=== PATIENT | male | born 1960 | race African-American/Black ===

== ENCOUNTER 2017-10-24 10:35 | Inpatient (IN) | payer OTHER ==
[2017-10-24 10:50] VITALS: BMI 24.1
[2017-10-24] MEDS ORDERED: MAGNESIUM CITRATE 300 ML BOTTLE PO PRN (15:09)
[2017-10-24] MEDS ORDERED: LOPERAMIDE HCL 2 MG CAPSULE PO PRN (15:09)
[2017-10-24] MEDS ORDERED: P-EPHED 60MG/TRIPROLIDI 2.5MG TABLET PO PRN (15:09)
[2017-10-24] MEDS ORDERED: guaiFENesin/D-METHORPHAN HB 10 ML UNIT-DOSE CUPS PO PRN (15:09)
[2017-10-24] MEDS ORDERED: IBUPROFEN 400 MG TABLET (FP) PO PRN (15:09)
[2017-10-24] MEDS ORDERED: MAGNESIUM HYDROX 2400MG/30ML ORAL SUSPENSION 30 ML CUP PO PRN (15:09)
[2017-10-24] MEDS ORDERED: MENTHOL/PHENOL 1 EACH UD MM PRN (15:09)
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
[2017-10-24] MEDS ORDERED: PATIENT'S OWN MEDICATION (NON-FORMULARY) (Omeprazole Magnesium [Prilosec Otc] 20 MG) PO SCH (15:15)
[2017-10-24] MEDS: PANTOPRAZOLE 40 MG TABLET (FP) PO SCH (17:02)
[2017-10-24 19:40] LABS: URINE APPEARANCE CLEAR; URINE BILIRUBIN NEGATIVE (<2.0 mg/dL); URINE BLOOD NEGATIVE (NEGATIVE); URINE COLOR LTYELLOW; URINE GLUCOSE (UA) NEGATIVE (NEGATIVE); URINE KETONE NEGATIVE (NEGATIVE); URINE LEUK ESTERASE NEGATIVE (NEGATIVE); URINE NITRITE NEGATIVE (NEGATIVE); URINE PROTEIN NEGATIVE (NEGATIVE); URINE UROBILINOGEN NEGATIVE mg/dL (0.2-1.0)
[2017-10-24] MEDS: THIAMINE HCL 100 MG TABLET (FP) PO SCH (21:59)
[2017-10-24] MEDS ORDERED: MELATONIN 5 MG TABLETS PO PRN (22:00)
[2017-10-24] MEDS: TOLNAFTATE 1% CREAM 15 GM TUBE TP SCH (22:35)
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
[2017-10-25] MEDS: PANTOPRAZOLE 40 MG TABLET (FP) PO SCH (09:57)
[2017-10-25] MEDS: PRENATAL VITAMINS W/ FOLIC ACID TABLET (FP) PO SCH (09:57)
[2017-10-25] MEDS: TOLNAFTATE 1% CREAM 15 GM TUBE TP SCH ×2 (09:59→21:55)
[2017-10-25] MEDS: COLLOIDAL OATMEAL 1 BAR EACH TP PRN (10:01)
--- NOTE | 2017-10-25 10:08 | EKG ---
Test Reason : Blood Pressure : / mmHG Vent. Rate : 070 BPM Atrial Rate : 070 BPM P-R Int : 134 ms QRS Dur : 094 ms QT Int : 386 ms P-R-T Axes : 070 075 052 degrees QTc Int : 416 ms NORMAL SINUS RHYTHM EARLY REPOLARIZATION NORMAL ECG NO PREVIOUS ECGS AVAILABLE Confirmed by MARY BROWN, KEVNI ([id number]) on 10/25/2017 10:07:52 AM Referred By: Confirmed By:KEVIN HERNANDEZ MD
[2017-10-25 10:18] LABS: HEMATOCRIT 40.3 % (35.4-49); HEMOGLOBIN 13.2 GM/dL (11.7-16.9); MCH 31.1 pg (25.7-33.7); MCHC 32.7 g/dl (32.0-35.9); MEAN CELL VOLUME 95.1 fl (80-96); PLATELET COUNT 248 K/MM3 (134-434); RBC 4.23 M/mm3 (4.00-5.60); RDW 13.2 % (11.9-15.9); WHITE BLOOD COUNT 5.9 K/mm3 (4.0-10.0)
[2017-10-25 10:30] LABS: CHLORIDE 106 mmol/L (98-107); POTASSIUM 4.1 mmol/L (3.5-5.1); SODIUM 141 mmol/L (136-145)
[2017-10-25 10:51] LABS: ALBUMIN 3.6 g/dl (3.4-5.0); ALK PHOS 81 U/L (45-117); ANION GAP 8 (8-16); BILIRUBIN,TOTAL 0.3 mg/dL (0.2-1.0); BLOOD UREA NITROGEN 14 mg/dL (7-18); CALCIUM 8.9 mg/dL (8.5-10.1); CO2 27 mmol/L (21-32); GLUCOSE,RANDOM 149 mg/dL (74-106); SGOT/AST 21 U/L (15-37); SGPT/ALT 29 U/L (12-78); TOT PROT 7.6 g/dl (6.4-8.2)
[2017-10-25 15:12] LABS: SICKLE CELL SCREEN NEGATIVE (NEGATIVE)
--- NOTE | 2017-10-25 17:29 | PN ---
[facility] Progress Note Note: Patient presents with nasal congestion and sore throat. Denies fever, cough and SOB. Laboratory Tests 10/24/17 10/25/17 10/25/17 19:00 05:50 05:50 WBC 5.9 RBC 4.23 Hgb 13.2 Hct 40.3 MCV 95.1 MCH 31.1 MCHC 32.7 RDW 13.2 Plt Count 248 MPV 9.0 Sickle Cell Screen Negative Sodium 141 Potassium 4.1 Chloride 106 Carbon Dioxide 27 Anion Gap 8 BUN 14 Creatinine 1.0 Creat Clearance w eGFR > 60 Random Glucose 149 H Calcium 8.9 Total Bilirubin 0.3 AST 21 ALT 29 Alkaline Phosphatase 81 Total Protein 7.6 Albumin 3.6 Urine Color Ltyellow Urine Appearance Clear Urine pH 8.0 Ur Specific [place] 1.017 Urine Protein Negative Urine Glucose (UA) Negative Urine Ketones Negative Urine Blood Negative Urine Nitrite Negative Urine Bilirubin Negative Urine Urobilinogen Negative Ur Leukocyte Esterase Negative RPR Titer 10/25/17 05:50 WBC RBC Hgb Hct MCV MCH MCHC RDW Plt Count MPV Sickle Cell Screen Sodium Potassium Chloride Carbon Dioxide Anion Gap BUN Creatinine Creat Clearance w eGFR Random Glucose Calcium Total Bilirubin AST ALT Alkaline Phosphatase Total Protein Albumin Urine Color Urine Appearance Urine pH Ur Specific [place] Urine Protein Urine Glucose (UA) Urine Ketones Urine Blood Urine Nitrite Urine Bilirubin Urine Urobilinogen Ur Leukocyte Esterase RPR Titer Nonreactive Vital Signs Temp 97.9 F 10/25/17 06:47 Pulse 77 10/25/17 06:47 Resp 18 10/25/17 06:47 BP 115/76 10/25/17 06:47 Pulse Ox Intake & Output 10/24/17 10/25/17 10/25/17 23:59 11:59 23:59 Other: Voiding Method Toilet Obj: HEENT: normocephalic, +PERRLA, +nasal congestion, pharynx pink and no exudate Skin: warm and dry and in NAD. A/P: withdrawal symptoms Will continue with prn tylenol and ephendrine continue to monitor clinically
[2017-10-25] MEDS ORDERED: BENZOYL PEROXIDE 5% 60 GM GEL..GRAM. TP ONE (18:00)
[2017-10-25] MEDS: AMMONIUM LACTATE 12% LOTION 225 GM BOTTLE TP PRN (21:51)
[2017-10-25] MEDS ORDERED: PT OWN MED DRAWER 7, Y5N ONE ×2 (21:52→21:54)
[2017-10-25] MEDS: MELATONIN 5 MG, MELATONIN 1 MG PO PRN (21:55)
[2017-10-25] MEDS: THIAMINE HCL 100 MG TABLET (FP) PO SCH (21:55)
[2017-10-25] MEDS ORDERED: MELATONIN 1 MG TABLET PO PRN (22:00)
[2017-10-26] MEDS: PRENATAL VITAMINS W/ FOLIC ACID TABLET (FP) PO SCH (09:32)
[2017-10-26] MEDS: TOLNAFTATE 1% CREAM 15 GM TUBE TP SCH ×2 (09:32→22:40)
[2017-10-26] MEDS: PANTOPRAZOLE 40 MG TABLET (FP) PO SCH (09:32)
[2017-10-26] MEDS: MELATONIN 5 MG, MELATONIN 1 MG PO PRN (21:20)
[2017-10-26] MEDS: THIAMINE HCL 100 MG TABLET (FP) PO SCH (22:40)
[2017-10-27] MEDS ORDERED: PT OWN MED DRAWER 7, Y5N ONE ×2 (08:40→19:41)
[2017-10-27] MEDS: PANTOPRAZOLE 40 MG TABLET (FP) PO SCH (09:48)
[2017-10-27] MEDS: TOLNAFTATE 1% CREAM 15 GM TUBE TP SCH ×2 (09:48→21:28)
[2017-10-27] MEDS: PRENATAL VITAMINS W/ FOLIC ACID TABLET (FP) PO SCH (09:48)
[2017-10-27] MEDS: ACETAMINOPHEN 325 MG TABLET (FP) PO PRN (09:49)
[2017-10-27] MEDS: THIAMINE HCL 100 MG TABLET (FP) PO SCH (21:28)
[2017-10-27] MEDS: MELATONIN 5 MG, MELATONIN 1 MG PO PRN (21:28)
[2017-10-28] MEDS: PANTOPRAZOLE 40 MG TABLET (FP) PO SCH (09:45)
[2017-10-28] MEDS: TOLNAFTATE 1% CREAM 15 GM TUBE TP SCH ×2 (09:45→21:13)
[2017-10-28] MEDS: PRENATAL VITAMINS W/ FOLIC ACID TABLET (FP) PO SCH (09:45)
[2017-10-28] MEDS: AMMONIUM LACTATE 12% LOTION 225 GM BOTTLE TP PRN (21:11)
[2017-10-28] MEDS: MELATONIN 5 MG, MELATONIN 1 MG PO PRN (21:13)
[2017-10-28] MEDS ORDERED: PT OWN MED DRAWER 7, Y5N ONE (21:14)
[2017-10-28] MEDS: THIAMINE HCL 100 MG TABLET (FP) PO SCH (21:15)
[2017-10-29] MEDS: PRENATAL VITAMINS W/ FOLIC ACID TABLET (FP) PO SCH (09:48)
[2017-10-29] MEDS: PANTOPRAZOLE 40 MG TABLET (FP) PO SCH (09:48)
[2017-10-29] MEDS: TOLNAFTATE 1% CREAM 15 GM TUBE TP SCH ×2 (09:50→21:16)
[2017-10-29] MEDS ORDERED: MELATONIN 5 MG TABLETS PO PRN (10:44)
[2017-10-29] MEDS ORDERED: PT OWN MED DRAWER 7, Y5N ONE (21:17)
[2017-10-29] MEDS: THIAMINE HCL 100 MG TABLET (FP) PO SCH (21:17)
[2017-10-29] MEDS ORDERED: MELATONIN 1 MG, MELATONIN 5 MG PO PRN (22:00)
--- NOTE | 2017-10-30 07:59 | PN ---
Psychiatric Progress Note Vital Signs: Vital Signs Period Temp Pulse Resp BP Sys/Delgadillo Pulse Ox Last 24 Hr 98 F 85 18-18 99/71 Date of Session: 10/30/17 Chief Complaint:: Insomnia HPI: Patient addressing Alcohol Dependence comorbid with Alcohol-induced Sleep Disorder ROS: Athete's foot, GERD, Onychogryphosis Current Medications: Active Medications Generic Name Dose Route Start Last Admin Trade Name Freq PRN Reason Stop Dose Admin Acetaminophen 650 mg 10/24/17 15:09 10/27/17 09:49 Tylenol - PO 650 mg Q4H PRN Administration FEVER Al Hydroxide/Mg Hydroxide 30 ml 10/24/17 15:09 Mylanta Oral Suspension - PO Q6H PRN DYSPEPSIA Colloidal Oatmeal 1 applic 10/24/17 15:11 10/25/17 10:01 Aveeno Soap - TP 1 applic DAILY PRN Administration HYGEINE Eucalyptus/Menthol/Phenol/Sorbitol 1 each 10/24/17 15:09 Cepastat Lozenge - MM Q4H PRN SORE THROAT Guaifenesin 10 ml 10/24/17 15:09 Robitussin Dm - PO Q6H PRN COUGH Hydroxyzine Pamoate 50 mg 10/24/17 15:09 Vistaril - PO Q4H PRN AGITATION Ibuprofen 400 mg 10/24/17 15:09 Motrin - PO Q6H PRN Pain level 4-6 Lactic Acid 1 applic 10/24/17 15:11 10/28/17 21:11 Lac-Hydrin 12 TP 1 applic BID PRN Administration DRY SKIN Loperamide HCl 4 mg 10/24/17 15:09 Imodium - PO Q6H PRN DIARRHEA Magnesium Citrate 300 ml 10/24/17 15:09 Citroma - PO Q48H PRN CONSTIPATION Magnesium Hydroxide 30 ml 10/24/17 15:09 Milk Of Magnesia - PO DAILY PRN CONSTIPATION Pantoprazole Sodium 40 mg 10/24/17 15:35 10/29/17 09:48 Protonix - PO 40 mg DAILY BETH Administration Multivit/Folic Acid/Iron 1 tab 10/25/17 10:00 10/29/17 09:48 Vitamins (Sjr) - PO 1 tab DAILY BETH Administration Pseudoephedrine/Triprolidine 1 combo 10/24/17 15:09 Actifed - PO TID PRN NASAL CONGESTION Suvorexant 10 mg 10/30/17 22:00 Belsomra PO HS PRN INSOMNIA Thiamine HCl 100 mg 10/24/17 22:00 10/29/17 21:17 Vitamin B1 - PO 100 mg HS BETH Administration Tolnaftate 1 applic 10/24/17 22:00 10/29/17 21:16 Tinactin 1% Cream - TP 1 applic BID BETH Administration Medication(s) Change(s): 1) Discontinue Melatonin. 2) Start Belsomra 10 mg po HS prn for insomnia Current Side Effect: No Lab tests ordered: Yes Lab tests reviewed: Yes Provider note:: Patient reports sleeping poorly despite taking Melatonin 6 mg at bedtime. Discussed not only sleep hygiene with patient but also hypnotic properties of Belsomra. Patient is in agreement with plan Total face to face time:: 15 Mental Status Exam - Mental Status Exam Alert and Oriented to: Time, Place, Person Cognitive Function: Fair Patient Appearance: Well Groomed Mood: Hopeful, Euthymic Affect: Appropriate Patient Behavior: Cooperative Speech Pattern: Clear Voice Loudness: Normal Thought Process: Intact, Goal Oriented Thought Disorder: Not Present Hallucinations: Denies Suicidal Ideation: Denies Homicidal Ideation: Denies Insight/Judgement: Fair Sleep: Poorly Appetite: Good Muscle strength/Tone: Normal Gait/Station: Normal Psychiatric Treatment Plan - Problem List (1) Alcohol dependence Current Visit: Yes (2) Alcohol-induced sleep disorder Current Visit: Yes (3) Athletes foot Current Visit: Yes (4) GERD (gastroesophageal reflux disease) Current Visit: Yes (5) Onychogryphosis Current Visit: Yes Initial treatment plan: 1) Discontinue Melotonin. 2) Start Belsomra 10 mg po HS prn for insomnia. 3) Monitor progress
[2017-10-30] MEDS: PRENATAL VITAMINS W/ FOLIC ACID TABLET (FP) PO SCH (10:00)
[2017-10-30] MEDS: PANTOPRAZOLE 40 MG TABLET (FP) PO SCH (10:00)
[2017-10-30] MEDS ORDERED: PT OWN MED DRAWER 7, Y5N ONE ×2 (10:02→20:16)
[2017-10-30] MEDS: TOLNAFTATE 1% CREAM 15 GM TUBE TP SCH ×2 (10:02→21:17)
[2017-10-30] MEDS: THIAMINE HCL 100 MG TABLET (FP) PO SCH (21:17)
[2017-10-30] MEDS ORDERED: SUVOREXANT 10 MG TABLET PO PRN (22:00)
[2017-10-31] MEDS: PANTOPRAZOLE 40 MG TABLET (FP) PO SCH (09:50)
[2017-10-31] MEDS: PRENATAL VITAMINS W/ FOLIC ACID TABLET (FP) PO SCH (09:50)
[2017-10-31] MEDS: AMMONIUM LACTATE 12% LOTION 225 GM BOTTLE TP PRN (09:51)
[2017-10-31] MEDS: TOLNAFTATE 1% CREAM 15 GM TUBE TP SCH ×2 (09:51→21:20)
--- NOTE | 2017-10-31 12:51 | PN ---
S Progress Note Note: Patient c/o of non-radiating intermittent chest pain since this morning and bilateral eye pain. Denies vertigo, SOB, of dyspnea on exertion. Last Vital Signs Temp Pulse Resp BP Pulse Ox 98.2 F 73 18 117/72 10/31/17 06:50 10/31/17 06:50 10/31/17 06:50 10/31/17 06:50 Laboratory Last Values WBC 5.9 K/mm3 (4.0-10.0) 10/25/17 05:50 RBC 4.23 M/mm3 (4.00-5.60) 10/25/17 05:50 Hgb 13.2 GM/dL (11.7-16.9) 10/25/17 05:50 Hct 40.3 % (35.4-49) 10/25/17 05:50 MCV 95.1 fl (80-96) 10/25/17 05:50 MCH 31.1 pg (25.7-33.7) 10/25/17 05:50 MCHC 32.7 g/dl (32.0-35.9) 10/25/17 05:50 RDW 13.2 % (11.9-15.9) 10/25/17 05:50 Plt Count 248 K/MM3 (134-434) 10/25/17 05:50 MPV 9.0 fl (7.5-11.1) 10/25/17 05:50 Sickle Cell Screen Negative (NEGATIVE) 10/25/17 05:50 Sodium 141 mmol/L (136-145) 10/25/17 05:50 Potassium 4.1 mmol/L (3.5-5.1) 10/25/17 05:50 Chloride 106 mmol/L (98-107) 10/25/17 05:50 Carbon Dioxide 27 mmol/L (21-32) 10/25/17 05:50 Anion Gap 8 (8-16) 10/25/17 05:50 BUN 14 mg/dL (7-18) 10/25/17 05:50 Creatinine 1.0 mg/dL (0.7-1.3) 10/25/17 05:50 Creat Clearance w eGFR > 60 (>60) 10/25/17 05:50 POC Glucometer 90 UNITS (80-120) 10/29/17 06:43 Random Glucose 149 mg/dL (74-106) H 10/25/17 05:50 Calcium 8.9 mg/dL (8.5-10.1) 10/25/17 05:50 Total Bilirubin 0.3 mg/dL (0.2-1.0) 10/25/17 05:50 AST 21 U/L (15-37) 10/25/17 05:50 ALT 29 U/L (12-78) 10/25/17 05:50 Alkaline Phosphatase 81 U/L (45-117) 10/25/17 05:50 Total Protein 7.6 g/dl (6.4-8.2) 10/25/17 05:50 Albumin 3.6 g/dl (3.4-5.0) 10/25/17 05:50 Urine Color Ltyellow 10/24/17 19:00 Urine Appearance Clear 10/24/17 19:00 Urine pH 8.0 (5.0-8.0) 10/24/17 19:00 Ur Specific [place] 1.017 (1.001-1.035) 10/24/17 19:00 Urine Protein Negative (NEGATIVE) 10/24/17 19:00 Urine Glucose (UA) Negative (NEGATIVE) 10/24/17 19:00 Urine Ketones Negative (NEGATIVE) 10/24/17 19:00 Urine Blood Negative (NEGATIVE) 10/24/17 19:00 Urine Nitrite Negative (NEGATIVE) 10/24/17 19:00 Urine Bilirubin Negative (<2.0 mg/dL) 10/24/17 19:00 Urine Urobilinogen Negative mg/dL (0.2-1.0) 10/24/17 19:00 Ur Leukocyte Esterase Negative (NEGATIVE) 10/24/17 19:00 RPR Titer Nonreactive (NONREACTIVE) 10/25/17 05:50 A/P Patient in no apparent distress, agitated Normal Heart Rate and rhythm, EKG NSR, no edema Lungs clear throughout no adventitious breath sounds No edema present, skin discoloration or cyanosis, + pulses throughout BS x 4, no tenderness or distension EKG order Patient sent to [facility] for further evaluation, patient endorse to Dr. Park
--- NOTE | 2017-10-31 14:26 | PN ---
Psychiatric Progress Note Vital Signs: Vital Signs Period Temp Pulse Resp BP Sys/Delgadillo Pulse Ox Last 24 Hr 97.6 F-98.2 F 73-82 16-18 117-141/72-94 Date of Session: 10/31/17 Chief Complaint:: Insomnia HPI: Patient addressing Alcohol Dependence comorbid with Alcohol-induced Sleep Disorder ROS: Athete's foot, GERD, Onychogryphosis Current Medications: Active Medications Generic Name Dose Route Start Last Admin Trade Name Freq PRN Reason Stop Dose Admin Acetaminophen 650 mg 10/24/17 15:09 10/27/17 09:49 Tylenol - PO 650 mg Q4H PRN Administration FEVER Al Hydroxide/Mg Hydroxide 30 ml 10/24/17 15:09 Mylanta Oral Suspension - PO Q6H PRN DYSPEPSIA Colloidal Oatmeal 1 applic 10/24/17 15:11 10/25/17 10:01 Aveeno Soap - TP 1 applic DAILY PRN Administration HYGEINE Eucalyptus/Menthol/Phenol/Sorbitol 1 each 10/24/17 15:09 Cepastat Lozenge - MM Q4H PRN SORE THROAT Guaifenesin 10 ml 10/24/17 15:09 Robitussin Dm - PO Q6H PRN COUGH Hydroxyzine Pamoate 50 mg 10/24/17 15:09 Vistaril - PO Q4H PRN AGITATION Ibuprofen 400 mg 10/24/17 15:09 Motrin - PO Q6H PRN Pain level 4-6 Lactic Acid 1 applic 10/24/17 15:11 10/31/17 09:51 Lac-Hydrin 12 TP 1 applic BID PRN Administration DRY SKIN Loperamide HCl 4 mg 10/24/17 15:09 Imodium - PO Q6H PRN DIARRHEA Magnesium Citrate 300 ml 10/24/17 15:09 Citroma - PO Q48H PRN CONSTIPATION Magnesium Hydroxide 30 ml 10/24/17 15:09 Milk Of Magnesia - PO DAILY PRN CONSTIPATION Pantoprazole Sodium 40 mg 10/24/17 15:35 10/31/17 09:50 Protonix - PO 40 mg DAILY BETH Administration Multivit/Folic Acid/Iron 1 tab 10/25/17 10:00 10/31/17 09:50 Vitamins (Sjr) - PO 1 tab DAILY BETH Administration Pseudoephedrine/Triprolidine 1 combo 10/24/17 15:09 Actifed - PO TID PRN NASAL CONGESTION Suvorexant 15 mg 10/31/17 22:00 Belsomra PO HS PRN INSOMNIA Thiamine HCl 100 mg 10/24/17 22:00 10/30/17 21:17 Vitamin B1 - PO 100 mg HS BETH Administration Tolnaftate 1 applic 10/24/17 22:00 10/31/17 09:51 Tinactin 1% Cream - TP 1 applic BID BETH Administration Medication(s) Change(s): Increase Belsomra dosage to 15 mg po HS prn for insomnia Current Side Effect: No Lab tests ordered: Yes Lab tests reviewed: Yes Provider note:: Patient reports experiencing difficulty to sleep. Told scientific writer that he slept poorly last night despite taking Belsomra 10 mg at bedtime. Discussed with patient about increasing dosage of Belsomra and he agreed with that plan Total face to face time:: 15 Mental Status Exam - Mental Status Exam Alert and Oriented to: Time, Place, Person Cognitive Function: Fair Patient Appearance: Well Groomed Mood: Hopeful, Euthymic Affect: Appropriate Patient Behavior: Cooperative Speech Pattern: Clear Voice Loudness: Normal Thought Process: Intact, Goal Oriented Thought Disorder: Not Present Hallucinations: Denies Homicidal Ideation: Denies Insight/Judgement: Fair Sleep: Poorly Appetite: Good Muscle strength/Tone: Normal Gait/Station: Normal Psychiatric Treatment Plan - Problem List (1) Alcohol dependence Current Visit: Yes Qualifiers: Substance use status: uncomplicated Qualified Code(s): F10.20 - Alcohol dependence, uncomplicated (2) Alcohol-induced sleep disorder Current Visit: Yes (3) Athletes foot Current Visit: Yes (4) GERD (gastroesophageal reflux disease) Current Visit: Yes (5) Onychogryphosis Current Visit: Yes Initial treatment plan: 1) Discontinue Berlsomra as currently ordered. 2) Start Belsomra 15 mg po HS prn for insomnia. 3) Monitor progress
--- NOTE | 2017-10-31 15:58 | EKG ---
Test Reason : Blood Pressure : / mmHG Vent. Rate : 080 BPM Atrial Rate : 080 BPM P-R Int : 132 ms QRS Dur : 086 ms QT Int : 350 ms P-R-T Axes : -06 -11 017 degrees QTc Int : 403 ms NORMAL SINUS RHYTHM MODERATE VOLTAGE CRITERIA FOR LVH, MAY BE NORMAL VARIANT BORDERLINE ECG WHEN COMPARED WITH ECG OF 25-OCT-2017 05:27, QUESTIONABLE CHANGE IN QRS AXIS T WAVE AMPLITUDE HAS DECREASED IN LATERAL LEADS Confirmed by SHANNAN BURKS MD ([id number]) on 10/31/2017 3:57:44 PM Referred By: Confirmed By:SHANNAN BURKS MD
--- NOTE | 2017-10-31 19:40 | PN ---
S Progress Note Note: Patient return to the unit in stable condition to continue rehab tx after evaluation in the ED for chest pain, patient dx with acute Costochondritis. Vital Signs Temperature 97.7 F 10/31/17 18:53 Pulse Rate 75 10/31/17 18:53 Respiratory Rate 18 10/31/17 18:53 Blood Pressure 139/79 10/31/17 18:53 O2 Sat by Pulse Oximetry (%) Continue to monitor
[2017-10-31] MEDS: THIAMINE HCL 100 MG TABLET (FP) PO SCH (21:20)
[2017-10-31] MEDS: hydrOXYzine PAMOATE 50 MG CAPSULE (FP) PO PRN (21:20)
[2017-10-31] MEDS ORDERED: PT OWN MED DRAWER 7, Y5N ONE (21:21)
[2017-10-31] MEDS ORDERED: SUVOREXANT 15 MG TABLET PO PRN (22:00)
[2017-11-01] MEDS: PANTOPRAZOLE 40 MG TABLET (FP) PO SCH (10:12)
[2017-11-01] MEDS: PRENATAL VITAMINS W/ FOLIC ACID TABLET (FP) PO SCH (10:12)
[2017-11-01] MEDS: TOLNAFTATE 1% CREAM 15 GM TUBE TP SCH ×2 (10:13→21:11)
--- NOTE | 2017-11-01 11:52 | PN ---
Psychiatric Progress Note Vital Signs: Vital Signs Period Temp Pulse Resp BP Sys/Delgadillo Pulse Ox Last 24 Hr 97.6 F-97.9 F 75-82 16-18 131-141/79-94 Date of Session: 11/01/17 Chief Complaint:: Insomnia HPI: Patient addressing Alcohol Dependence comorbid with Alcohol-induced Sleep Disorder ROS: Athete's foot, GERD, Onychogryphosis Current Medications: Active Medications Generic Name Dose Route Start Last Admin Trade Name Freq PRN Reason Stop Dose Admin Acetaminophen 650 mg 10/24/17 15:09 10/27/17 09:49 Tylenol - PO 650 mg Q4H PRN Administration FEVER Al Hydroxide/Mg Hydroxide 30 ml 10/24/17 15:09 Mylanta Oral Suspension - PO Q6H PRN DYSPEPSIA Colloidal Oatmeal 1 applic 10/24/17 15:11 10/25/17 10:01 Aveeno Soap - TP 1 applic DAILY PRN Administration HYGEINE Eucalyptus/Menthol/Phenol/Sorbitol 1 each 10/24/17 15:09 Cepastat Lozenge - MM Q4H PRN SORE THROAT Guaifenesin 10 ml 10/24/17 15:09 Robitussin Dm - PO Q6H PRN COUGH Hydroxyzine Pamoate 50 mg 10/24/17 15:09 10/31/17 21:20 Vistaril - PO 50 mg Q4H PRN Administration AGITATION Ibuprofen 400 mg 10/24/17 15:09 Motrin - PO Q6H PRN Pain level 4-6 Lactic Acid 1 applic 10/24/17 15:11 10/31/17 09:51 Lac-Hydrin 12 TP 1 applic BID PRN Administration DRY SKIN Loperamide HCl 4 mg 10/24/17 15:09 Imodium - PO Q6H PRN DIARRHEA Magnesium Citrate 300 ml 10/24/17 15:09 Citroma - PO Q48H PRN CONSTIPATION Magnesium Hydroxide 30 ml 10/24/17 15:09 Milk Of Magnesia - PO DAILY PRN CONSTIPATION Pantoprazole Sodium 40 mg 10/24/17 15:35 11/01/17 10:12 Protonix - PO Not Given DAILY BETH Multivit/Folic Acid/Iron 1 tab 10/25/17 10:00 11/01/17 10:12 Vitamins (Sjr) - PO Not Given DAILY BETH Pseudoephedrine/Triprolidine 1 combo 10/24/17 15:09 Actifed - PO TID PRN NASAL CONGESTION Suvorexant 15 mg 10/31/17 22:00 10/31/17 21:18 Belsomra PO 11/03/17 21:59 15 mg HS PRN Administration INSOMNIA Suvorexant 10 mg 11/01/17 22:00 Belsomra PO HS PRN INSOMNIA Thiamine HCl 100 mg 10/24/17 22:00 10/31/17 21:20 Vitamin B1 - PO 100 mg HS BETH Administration Tolnaftate 1 applic 10/24/17 22:00 11/01/17 10:13 Tinactin 1% Cream - TP Not Given BID BETH Medication(s) Change(s): Increase Belsomra dosage to 20 mg po HS prn for insomnia Current Side Effect: No Lab tests ordered: Yes Lab tests reviewed: Yes Provider note:: Patient is still reporting sleeping poorly despite taking Belsomra 15 mg at bedtime last night. Patient requests that dosage of Belsomra be increased Total face to face time:: 15 Mental Status Exam - Mental Status Exam Alert and Oriented to: Time, Place, Person Cognitive Function: Fair Mood: Hopeful, Euthymic Affect: Appropriate Patient Behavior: Cooperative Speech Pattern: Clear Voice Loudness: Normal Thought Process: Intact, Goal Oriented Thought Disorder: Not Present Hallucinations: Denies Suicidal Ideation: Denies Homicidal Ideation: Denies Insight/Judgement: Fair Sleep: Poorly Appetite: Good Muscle strength/Tone: Normal Gait/Station: Normal Psychiatric Treatment Plan - Problem List (1) Alcohol dependence Current Visit: Yes Qualifiers: Substance use status: uncomplicated Qualified Code(s): F10.20 - Alcohol dependence, uncomplicated (2) Alcohol-induced sleep disorder Current Visit: Yes (3) Athletes foot Current Visit: Yes (4) GERD (gastroesophageal reflux disease) Current Visit: Yes (5) Onychogryphosis Current Visit: Yes Initial treatment plan: 1) Discontinue Belsomra as currently ordered. 2) Start Belsomra 20 mg po HS prn for insomnia. 3) Monitor progress
[2017-11-01] MEDS ORDERED: PT OWN MED DRAWER 7, Y5N ONE ×2 (11:54→19:28)
[2017-11-01] MEDS: SUVOREXANT 10 MG TABLET PO PRN (21:10)
[2017-11-01] MEDS: THIAMINE HCL 100 MG TABLET (FP) PO SCH (21:10)
[2017-11-01] MEDS ORDERED: SUVOREXANT 10 MG TABLET PO PRN (22:00)
[2017-11-02] MEDS: PRENATAL VITAMINS W/ FOLIC ACID TABLET (FP) PO SCH (09:41)
[2017-11-02] MEDS: PANTOPRAZOLE 40 MG TABLET (FP) PO SCH (09:41)
[2017-11-02] MEDS: TOLNAFTATE 1% CREAM 15 GM TUBE TP SCH ×2 (09:43→21:16)
[2017-11-02] MEDS: BENZOYL PEROXIDE 5% 60 GM GEL..GRAM. TP PRN (09:43)
[2017-11-02] MEDS ORDERED: PT OWN MED DRAWER 7, Y5N ONE (09:44)
[2017-11-02] MEDS: THIAMINE HCL 100 MG TABLET (FP) PO SCH (21:16)
[2017-11-02] MEDS: SUVOREXANT 10 MG TABLET PO PRN (21:16)
[2017-11-03] MEDS: TOLNAFTATE 1% CREAM 15 GM TUBE TP SCH ×2 (09:35→21:08)
[2017-11-03] MEDS: PANTOPRAZOLE 40 MG TABLET (FP) PO SCH (09:35)
[2017-11-03] MEDS: PRENATAL VITAMINS W/ FOLIC ACID TABLET (FP) PO SCH (09:35)
[2017-11-03] MEDS: SUVOREXANT 10 MG TABLET PO PRN (21:07)
[2017-11-03] MEDS: THIAMINE HCL 100 MG TABLET (FP) PO SCH (21:07)
[2017-11-04] MEDS: PANTOPRAZOLE 40 MG TABLET (FP) PO SCH (09:38)
[2017-11-04] MEDS: PRENATAL VITAMINS W/ FOLIC ACID TABLET (FP) PO SCH (09:38)
[2017-11-04] MEDS: TOLNAFTATE 1% CREAM 15 GM TUBE TP SCH ×2 (09:40→21:14)
[2017-11-04] MEDS ORDERED: PT OWN MED DRAWER 7, Y5N ONE (09:40)
--- NOTE | 2017-11-04 12:45 | EKG ---
Test Reason : Blood Pressure : / mmHG Vent. Rate : 074 BPM Atrial Rate : 074 BPM P-R Int : 134 ms QRS Dur : 096 ms QT Int : 366 ms P-R-T Axes : 060 062 051 degrees QTc Int : 406 ms NORMAL SINUS RHYTHM POSSIBLE LEFT ATRIAL ENLARGEMENT BORDERLINE ECG WHEN COMPARED WITH ECG OF 31-OCT-2017 12:53, QUESTIONABLE CHANGE IN QRS AXIS Confirmed by CHARLOTTE BARRON MD ([id number]) on 11/04/2017 12:45:39 PM Referred By: Confirmed By:CHARLOTTE BARRON MD
[2017-11-04] MEDS: hydrOXYzine PAMOATE 50 MG CAPSULE (FP) PO PRN (21:13)
[2017-11-04] MEDS: SUVOREXANT 10 MG TABLET PO PRN (21:14)
[2017-11-04] MEDS: THIAMINE HCL 100 MG TABLET (FP) PO SCH (21:14)
[2017-11-05] MEDS: PRENATAL VITAMINS W/ FOLIC ACID TABLET (FP) PO SCH (09:49)
[2017-11-05] MEDS: PANTOPRAZOLE 40 MG TABLET (FP) PO SCH (09:49)
[2017-11-05] MEDS: AMMONIUM LACTATE 12% LOTION 225 GM BOTTLE TP PRN (09:50)
[2017-11-05] MEDS: BENZOYL PEROXIDE 5% 60 GM GEL..GRAM. TP PRN (09:50)
[2017-11-05] MEDS: TOLNAFTATE 1% CREAM 15 GM TUBE TP SCH ×2 (09:51→22:10)
[2017-11-05] MEDS: SUVOREXANT 10 MG TABLET PO PRN (21:15)
[2017-11-05] MEDS: THIAMINE HCL 100 MG TABLET (FP) PO SCH (22:10)
[2017-11-06] MEDS: PANTOPRAZOLE 40 MG TABLET (FP) PO SCH (09:54)
[2017-11-06] MEDS: PRENATAL VITAMINS W/ FOLIC ACID TABLET (FP) PO SCH (09:55)
[2017-11-06] MEDS: TOLNAFTATE 1% CREAM 15 GM TUBE TP SCH ×2 (09:55→21:12)
[2017-11-06] MEDS: THIAMINE HCL 100 MG TABLET (FP) PO SCH (21:11)
[2017-11-06] MEDS: SUVOREXANT 10 MG TABLET PO PRN (21:11)
[2017-11-07] MEDS: TOLNAFTATE 1% CREAM 15 GM TUBE TP SCH ×2 (09:43→22:33)
[2017-11-07] MEDS: PANTOPRAZOLE 40 MG TABLET (FP) PO SCH (09:43)
[2017-11-07] MEDS: PRENATAL VITAMINS W/ FOLIC ACID TABLET (FP) PO SCH (09:43)
[2017-11-07] MEDS: THIAMINE HCL 100 MG TABLET (FP) PO SCH (21:13)
[2017-11-07] MEDS: SUVOREXANT 10 MG TABLET PO PRN (21:16)
[2017-11-08] MEDS: PANTOPRAZOLE 40 MG TABLET (FP) PO SCH (09:50)
[2017-11-08] MEDS: PRENATAL VITAMINS W/ FOLIC ACID TABLET (FP) PO SCH (09:50)
[2017-11-08] MEDS: hydrOXYzine PAMOATE 50 MG CAPSULE (FP) PO PRN (09:51)
[2017-11-08] MEDS ORDERED: PT OWN MED DRAWER 7, Y5N ONE ×3 (09:51→16:05)
[2017-11-08] MEDS: TOLNAFTATE 1% CREAM 15 GM TUBE TP SCH ×2 (09:53→21:16)
[2017-11-08] MEDS: BENZOYL PEROXIDE 5% 60 GM GEL..GRAM. TP PRN (09:53)
--- NOTE | 2017-11-08 10:42 | PN ---
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 ROS: Athete's foot, GERD, Onychogryphosis Current Medications: Active Medications Generic Name Dose Route Start Last Admin Trade Name Freq PRN Reason Stop Dose Admin Acetaminophen 650 mg 10/24/17 15:09 10/27/17 09:49 Tylenol - PO 650 mg Q4H PRN Administration FEVER Al Hydroxide/Mg Hydroxide 30 ml 10/24/17 15:09 Mylanta Oral Suspension - PO Q6H PRN DYSPEPSIA Benzoyl Peroxide 1 applic 11/01/17 13:11 11/08/17 09:53 Benzoyl Peroxide 5% Gel - TP 1 applic ONCE PRN Administration ORAL PAIN/MOUTH SORES Colloidal Oatmeal 1 applic 10/24/17 15:11 10/25/17 10:01 Aveeno Soap - TP 1 applic DAILY PRN Administration HYGEINE Eucalyptus/Menthol/Phenol/Sorbitol 1 each 10/24/17 15:09 Cepastat Lozenge - MM Q4H PRN SORE THROAT Guaifenesin 10 ml 10/24/17 15:09 Robitussin Dm - PO Q6H PRN COUGH Hydroxyzine Pamoate 50 mg 10/24/17 15:09 11/08/17 09:51 Vistaril - PO 50 mg Q4H PRN Administration AGITATION Ibuprofen 400 mg 10/24/17 15:09 Motrin - PO Q6H PRN Pain level 4-6 Lactic Acid 1 applic 10/24/17 15:11 11/05/17 09:50 Lac-Hydrin 12 TP 1 applic BID PRN Administration DRY SKIN Loperamide HCl 4 mg 10/24/17 15:09 Imodium - PO Q6H PRN DIARRHEA Magnesium Citrate 300 ml 10/24/17 15:09 Citroma - PO Q48H PRN CONSTIPATION Magnesium Hydroxide 30 ml 10/24/17 15:09 Milk Of Magnesia - PO DAILY PRN CONSTIPATION Pantoprazole Sodium 40 mg 10/24/17 15:35 11/08/17 09:50 Protonix - PO 40 mg DAILY BETH Administration Multivit/Folic Acid/Iron 1 tab 04/06/18 10:00 11/08/17 09:50 Vitamins (Sjr) - PO 1 tab DAILY BETH Administration Pseudoephedrine/Triprolidine 1 combo 10/24/17 15:09 Actifed - PO TID PRN NASAL CONGESTION Suvorexant 20 mg 11/07/17 22:00 11/07/17 21:16 Belsomra PO 11/10/17 21:59 20 mg HS PRN Administration INSOMNIA Thiamine HCl 100 mg 10/24/17 22:00 11/07/17 21:13 Vitamin B1 - PO 100 mg HS BETH Administration Tolnaftate 1 applic 10/24/17 22:00 11/08/17 09:53 Tinactin 1% Cream - TP 1 applic BID BETH Administration Current Side Effect: No Lab tests ordered: Yes Lab tests reviewed: Yes Provider note:: Patient is still reporting sleeping poorly despite taking Belsomra 20 mg at bedtime for the last few nights. Requested that Trazadone at low dose be ordered for him since he had experienced dry mouth on a higher dose in the past. Other adverse-effects including but not limited to priapism discussed with patient and he agreed with plan Total face to face time:: 15 Mental Status Exam - Mental Status Exam Alert and Oriented to: Time, Place, Person Cognitive Function: Fair Patient Appearance: Well Groomed Mood: Hopeful, Euthymic Affect: Appropriate Patient Behavior: Cooperative Speech Pattern: Clear Voice Loudness: Normal Thought Process: Intact Thought Disorder: Not Present Hallucinations: Denies Suicidal Ideation: Denies Homicidal Ideation: Denies Insight/Judgement: Fair Sleep: Poorly Appetite: Good Muscle strength/Tone: Normal Gait/Station: Normal Psychiatric Treatment Plan - Problem List (1) Alcohol dependence Current Visit: Yes Qualifiers: Substance use status: uncomplicated Qualified Code(s): F10.20 - Alcohol dependence, uncomplicated (2) Alcohol-induced sleep disorder Current Visit: Yes (3) Athletes foot Current Visit: Yes (4) GERD (gastroesophageal reflux disease) Current Visit: Yes (5) Onychogryphosis Current Visit: Yes Initial treatment plan: 1) Start Trazadone 50 mg po HS for insomnia. 2) Monitor progress
[2017-11-08] MEDS: traZODone HCL 50 MG TABLET (FP) PO SCH (21:15)
[2017-11-08] MEDS: THIAMINE HCL 100 MG TABLET (FP) PO SCH (21:15)
[2017-11-09] MEDS ORDERED: PT OWN MED DRAWER 7, Y5N ONE (08:33)
[2017-11-09] MEDS: PANTOPRAZOLE 40 MG TABLET (FP) PO SCH (09:20)
[2017-11-09] MEDS: TOLNAFTATE 1% CREAM 15 GM TUBE TP SCH ×2 (09:20→21:20)
[2017-11-09] MEDS: PRENATAL VITAMINS W/ FOLIC ACID TABLET (FP) PO SCH (09:20)
[2017-11-09] MEDS: traZODone HCL 50 MG TABLET (FP) PO SCH (21:20)
[2017-11-09] MEDS: THIAMINE HCL 100 MG TABLET (FP) PO SCH (21:20)
[2017-11-09] MEDS: hydrOXYzine PAMOATE 50 MG CAPSULE (FP) PO PRN (21:22)
[2017-11-09] MEDS: BENZOYL PEROXIDE 5% 60 GM GEL..GRAM. TP PRN (21:22)
[2017-11-10] MEDS: PRENATAL VITAMINS W/ FOLIC ACID TABLET (FP) PO SCH (09:28)
[2017-11-10] MEDS: PANTOPRAZOLE 40 MG TABLET (FP) PO SCH (09:28)
[2017-11-10] MEDS: TOLNAFTATE 1% CREAM 15 GM TUBE TP SCH ×2 (09:29→21:48)
[2017-11-10] MEDS: THIAMINE HCL 100 MG TABLET (FP) PO SCH (21:48)
[2017-11-10] MEDS: traZODone HCL 50 MG TABLET (FP) PO SCH (21:48)
[2017-11-10] MEDS: SUVOREXANT 10 MG TABLET PO PRN (21:50)
[2017-11-10] MEDS: hydrOXYzine PAMOATE 50 MG CAPSULE (FP) PO PRN (21:50)
[2017-11-11] MEDS: TOLNAFTATE 1% CREAM 15 GM TUBE TP SCH ×2 (09:48→21:14)
[2017-11-11] MEDS: PANTOPRAZOLE 40 MG TABLET (FP) PO SCH (09:48)
[2017-11-11] MEDS: PRENATAL VITAMINS W/ FOLIC ACID TABLET (FP) PO SCH (09:48)
[2017-11-11] MEDS: THIAMINE HCL 100 MG TABLET (FP) PO SCH (21:11)
[2017-11-11] MEDS: traZODone HCL 50 MG TABLET (FP) PO SCH (21:12)
[2017-11-11] MEDS: hydrOXYzine PAMOATE 50 MG CAPSULE (FP) PO PRN (21:12)
[2017-11-11] MEDS: SUVOREXANT 10 MG TABLET PO PRN (21:12)
[2017-11-11] MEDS: BENZOYL PEROXIDE 5% 60 GM GEL..GRAM. TP PRN (21:13)
[2017-11-11] MEDS ORDERED: PT OWN MED DRAWER 7, Y5N ONE (21:14)
[2017-11-11] MEDS: ACETAMINOPHEN 325 MG TABLET (FP) PO PRN (21:15)
[2017-11-12] MEDS: PANTOPRAZOLE 40 MG TABLET (FP) PO SCH (09:40)
[2017-11-12] MEDS: PRENATAL VITAMINS W/ FOLIC ACID TABLET (FP) PO SCH (09:40)
[2017-11-12] MEDS: TOLNAFTATE 1% CREAM 15 GM TUBE TP SCH ×2 (10:35→21:11)
[2017-11-12] MEDS ORDERED: IBUPROFEN 600 MG TABLET (FP) PO PRN (15:34)
--- NOTE | 2017-11-12 15:38 | PN ---
[facility] Progress Note Note: Patient c/o of dry mouth, increase thirst after starting Trazadone. Patient also c/o of left knee pain worsen with ambulation. Patient denies CP, SOB or paresthesia. Vital Signs Temperature 97.9 F 11/12/17 06:40 Pulse Rate 78 11/12/17 06:40 Respiratory Rate 18 11/12/17 06:40 Blood Pressure 101/70 11/12/17 06:40 O2 Sat by Pulse Oximetry (%) Laboratory Last Values WBC 5.9 K/mm3 (4.0-10.0) 10/25/17 05:50 RBC 4.23 M/mm3 (4.00-5.60) 10/25/17 05:50 Hgb 13.2 GM/dL (11.7-16.9) 10/25/17 05:50 Hct 40.3 % (35.4-49) 10/25/17 05:50 MCV 95.1 fl (80-96) 10/25/17 05:50 MCH 31.1 pg (25.7-33.7) 10/25/17 05:50 MCHC 32.7 g/dl (32.0-35.9) 10/25/17 05:50 RDW 13.2 % (11.9-15.9) 10/25/17 05:50 Plt Count 248 K/MM3 (134-434) 10/25/17 05:50 MPV 9.0 fl (7.5-11.1) 10/25/17 05:50 Sickle Cell Screen Negative (NEGATIVE) 10/25/17 05:50 Sodium 141 mmol/L (136-145) 10/25/17 05:50 Potassium 4.1 mmol/L (3.5-5.1) 10/25/17 05:50 Chloride 106 mmol/L (98-107) 10/25/17 05:50 Carbon Dioxide 27 mmol/L (21-32) 10/25/17 05:50 Anion Gap 8 (8-16) 10/25/17 05:50 BUN 14 mg/dL (7-18) 10/25/17 05:50 Creatinine 1.0 mg/dL (0.7-1.3) 10/25/17 05:50 Creat Clearance w eGFR > 60 (>60) 10/25/17 05:50 POC Glucometer 90 UNITS (80-120) 10/29/17 06:43 Random Glucose 149 mg/dL (74-106) H 10/25/17 05:50 Calcium 8.9 mg/dL (8.5-10.1) 10/25/17 05:50 Total Bilirubin 0.3 mg/dL (0.2-1.0) 10/25/17 05:50 AST 21 U/L (15-37) 10/25/17 05:50 ALT 29 U/L (12-78) 10/25/17 05:50 Alkaline Phosphatase 81 U/L (45-117) 10/25/17 05:50 Total Protein 7.6 g/dl (6.4-8.2) 10/25/17 05:50 Albumin 3.6 g/dl (3.4-5.0) 10/25/17 05:50 Urine Color Ltyellow 10/24/17 19:00 Urine Appearance Clear 10/24/17 19:00 Urine pH 8.0 (5.0-8.0) 10/24/17 19:00 Ur Specific [place] 1.017 (1.001-1.035) 10/24/17 19:00 Urine Protein Negative (NEGATIVE) 10/24/17 19:00 Urine Glucose (UA) Negative (NEGATIVE) 10/24/17 19:00 Urine Ketones Negative (NEGATIVE) 10/24/17 19:00 Urine Blood Negative (NEGATIVE) 10/24/17 19:00 Urine Nitrite Negative (NEGATIVE) 10/24/17 19:00 Urine Bilirubin Negative (<2.0 mg/dL) 10/24/17 19:00 Urine Urobilinogen Negative mg/dL (0.2-1.0) 10/24/17 19:00 Ur Leukocyte Esterase Negative (NEGATIVE) 10/24/17 19:00 RPR Titer Nonreactive (NONREACTIVE) 10/25/17 05:50 A/P Patient A x3 in no apparent distress Full ROM + left knee pain Plan: Water pitcher by the bedside lidocaine patch, knee brace and Ibuprofen 600mg PRN Continue to monitor
[2017-11-12] MEDS: LIDOCAINE 5% TOPICAL PATCH TP SCH (17:08)
[2017-11-12] MEDS ORDERED: PT OWN MED DRAWER 7, Y5N ONE (17:46)
[2017-11-12] MEDS: ACETAMINOPHEN 325 MG TABLET (FP) PO PRN (21:10)
[2017-11-12] MEDS: SUVOREXANT 10 MG TABLET PO PRN (21:10)
[2017-11-12] MEDS: traZODone HCL 50 MG TABLET (FP) PO SCH (21:10)
[2017-11-12] MEDS: THIAMINE HCL 100 MG TABLET (FP) PO SCH (21:11)
[2017-11-12] MEDS: LIDOCAINE PATCH REMOVAL MC SCH (22:10)
[2017-11-13] MEDS: PRENATAL VITAMINS W/ FOLIC ACID TABLET (FP) PO SCH (09:36)
[2017-11-13] MEDS: PANTOPRAZOLE 40 MG TABLET (FP) PO SCH (09:37)
[2017-11-13] MEDS: LIDOCAINE 5% TOPICAL PATCH TP SCH (09:37)
[2017-11-13] MEDS ORDERED: PT OWN MED DRAWER 7, Y5N ONE (09:38)
[2017-11-13] MEDS: TOLNAFTATE 1% CREAM 15 GM TUBE TP SCH ×2 (09:39→21:15)
[2017-11-13] MEDS: BENZOYL PEROXIDE 5% 60 GM GEL..GRAM. TP PRN (09:39)
[2017-11-13] MEDS: SUVOREXANT 10 MG TABLET PO PRN (21:14)
[2017-11-13] MEDS: THIAMINE HCL 100 MG TABLET (FP) PO SCH (21:14)
[2017-11-13] MEDS: hydrOXYzine PAMOATE 50 MG CAPSULE (FP) PO PRN (21:14)
[2017-11-13] MEDS: LIDOCAINE PATCH REMOVAL MC SCH (21:15)
[2017-11-13] MEDS: traZODone HCL 50 MG TABLET (FP) PO SCH (21:15)
[2017-11-14] MEDS: PRENATAL VITAMINS W/ FOLIC ACID TABLET (FP) PO SCH (09:45)
[2017-11-14] MEDS: LIDOCAINE 5% TOPICAL PATCH TP SCH (09:45)
[2017-11-14] MEDS: PANTOPRAZOLE 40 MG TABLET (FP) PO SCH (09:45)
[2017-11-14] MEDS: TOLNAFTATE 1% CREAM 15 GM TUBE TP SCH ×2 (09:46→21:11)
[2017-11-14] MEDS: CLINDAMYCIN PHOSPHATE 1% TOPICAL GEL 30 GM TUBE TP SCH (21:09)
[2017-11-14] MEDS: LIDOCAINE PATCH REMOVAL MC SCH (21:10)
[2017-11-14] MEDS: traZODone HCL 50 MG TABLET (FP) PO SCH (21:10)
[2017-11-14] MEDS: THIAMINE HCL 100 MG TABLET (FP) PO SCH (21:10)
[2017-11-14] MEDS: hydrOXYzine PAMOATE 50 MG CAPSULE (FP) PO PRN (21:10)
[2017-11-15] MEDS: LIDOCAINE 5% TOPICAL PATCH TP SCH (09:41)
[2017-11-15] MEDS: PANTOPRAZOLE 40 MG TABLET (FP) PO SCH (09:41)
[2017-11-15] MEDS: PRENATAL VITAMINS W/ FOLIC ACID TABLET (FP) PO SCH (09:41)
[2017-11-15] MEDS: CLINDAMYCIN PHOSPHATE 1% TOPICAL GEL 30 GM TUBE TP SCH ×2 (09:41→21:12)
[2017-11-15] MEDS: TOLNAFTATE 1% CREAM 15 GM TUBE TP SCH ×2 (09:42→21:13)
[2017-11-15] MEDS ORDERED: PT OWN MED DRAWER 7, Y5N ONE ×2 (19:26→22:06)
[2017-11-15] MEDS: traZODone HCL 50 MG TABLET (FP) PO SCH (21:12)
[2017-11-15] MEDS: SUVOREXANT 10 MG TABLET PO PRN (21:12)
[2017-11-15] MEDS: THIAMINE HCL 100 MG TABLET (FP) PO SCH (21:12)
[2017-11-15] MEDS: hydrOXYzine PAMOATE 50 MG CAPSULE (FP) PO PRN (21:12)
[2017-11-15] MEDS: LIDOCAINE PATCH REMOVAL MC SCH (21:13)
[2017-11-15] MEDS: MAG HYDROX/AL HYDROX/SIMETH 30 ML UNIT-DOSE CUP PO PRN (21:15)
[2017-11-16] MEDS: PRENATAL VITAMINS W/ FOLIC ACID TABLET (FP) PO SCH (09:43)
[2017-11-16] MEDS: PANTOPRAZOLE 40 MG TABLET (FP) PO SCH (09:43)
[2017-11-16] MEDS: LIDOCAINE 5% TOPICAL PATCH TP SCH (09:44)
[2017-11-16] MEDS: CLINDAMYCIN PHOSPHATE 1% TOPICAL GEL 30 GM TUBE TP SCH ×2 (09:44→21:16)
[2017-11-16] MEDS: TOLNAFTATE 1% CREAM 15 GM TUBE TP SCH ×2 (09:44→21:17)
[2017-11-16] MEDS: SUVOREXANT 10 MG TABLET PO PRN (21:15)
[2017-11-16] MEDS: hydrOXYzine PAMOATE 50 MG CAPSULE (FP) PO PRN (21:16)
[2017-11-16] MEDS: traZODone HCL 50 MG TABLET (FP) PO SCH (21:16)
[2017-11-16] MEDS: THIAMINE HCL 100 MG TABLET (FP) PO SCH (21:17)
[2017-11-16] MEDS: LIDOCAINE PATCH REMOVAL MC SCH (21:17)
[2017-11-16] MEDS ORDERED: PT OWN MED DRAWER 7, Y5N ONE (22:00)
[2017-11-17] MEDS: PRENATAL VITAMINS W/ FOLIC ACID TABLET (FP) PO SCH (09:36)
[2017-11-17] MEDS: TOLNAFTATE 1% CREAM 15 GM TUBE TP SCH ×2 (09:36→21:11)
[2017-11-17] MEDS: CLINDAMYCIN PHOSPHATE 1% TOPICAL GEL 30 GM TUBE TP SCH ×2 (09:36→21:10)
[2017-11-17] MEDS: PANTOPRAZOLE 40 MG TABLET (FP) PO SCH (09:36)
[2017-11-17] MEDS: LIDOCAINE 5% TOPICAL PATCH TP SCH (09:36)
[2017-11-17] MEDS: THIAMINE HCL 100 MG TABLET (FP) PO SCH (21:10)
[2017-11-17] MEDS: traZODone HCL 50 MG TABLET (FP) PO SCH (21:10)
[2017-11-17] MEDS: LIDOCAINE PATCH REMOVAL MC SCH (21:10)
[2017-11-17] MEDS: hydrOXYzine PAMOATE 50 MG CAPSULE (FP) PO PRN (21:10)
[2017-11-18] MEDS ORDERED: PT OWN MED DRAWER 7, Y5N ONE (08:41)
[2017-11-18] MEDS: PRENATAL VITAMINS W/ FOLIC ACID TABLET (FP) PO SCH (09:58)
[2017-11-18] MEDS: CLINDAMYCIN PHOSPHATE 1% TOPICAL GEL 30 GM TUBE TP SCH ×2 (09:58→21:09)
[2017-11-18] MEDS: LIDOCAINE 5% TOPICAL PATCH TP SCH (09:58)
[2017-11-18] MEDS: PANTOPRAZOLE 40 MG TABLET (FP) PO SCH (09:58)
[2017-11-18] MEDS: TOLNAFTATE 1% CREAM 15 GM TUBE TP SCH ×2 (10:22→21:09)
[2017-11-18] MEDS: COLLOIDAL OATMEAL 1 BAR EACH TP PRN (10:22)
[2017-11-18] MEDS: THIAMINE HCL 100 MG TABLET (FP) PO SCH (21:08)
[2017-11-18] MEDS: hydrOXYzine PAMOATE 50 MG CAPSULE (FP) PO PRN (21:08)
[2017-11-18] MEDS: traZODone HCL 50 MG TABLET (FP) PO SCH (21:08)
[2017-11-18] MEDS: SUVOREXANT 10 MG TABLET PO PRN (21:08)
[2017-11-18] MEDS: LIDOCAINE PATCH REMOVAL MC SCH (21:09)
[2017-11-19] MEDS: PANTOPRAZOLE 40 MG TABLET (FP) PO SCH (09:32)
[2017-11-19] MEDS: PRENATAL VITAMINS W/ FOLIC ACID TABLET (FP) PO SCH (09:32)
[2017-11-19] MEDS: CLINDAMYCIN PHOSPHATE 1% TOPICAL GEL 30 GM TUBE TP SCH ×2 (09:33→21:16)
[2017-11-19] MEDS: TOLNAFTATE 1% CREAM 15 GM TUBE TP SCH ×2 (09:33→21:16)
[2017-11-19] MEDS: LIDOCAINE 5% TOPICAL PATCH TP SCH (09:33)
[2017-11-19] MEDS: MAG HYDROX/AL HYDROX/SIMETH 30 ML UNIT-DOSE CUP PO PRN (12:57)
[2017-11-19] MEDS: SUVOREXANT 10 MG TABLET PO PRN (21:14)
[2017-11-19] MEDS: traZODone HCL 50 MG TABLET (FP) PO SCH (21:14)
[2017-11-19] MEDS: THIAMINE HCL 100 MG TABLET (FP) PO SCH (21:14)
[2017-11-19] MEDS: LIDOCAINE PATCH REMOVAL MC SCH (21:16)
[2017-11-19] MEDS ORDERED: PT OWN MED DRAWER 7, Y5N ONE (22:17)
--- NOTE | 2017-11-20 06:19 | PN ---
Psychiatric Progress Note Vital Signs: Vital Signs Period Temp Pulse Resp BP Sys/Delgadillo Pulse Ox Last 24 Hr 96.2 F 76 16-18 128/68 Date of Session: 11/20/17 Chief Complaint:: Discharge Note HPI: Patient addressing Alcohol Dependence comorbid with Alcohol-Induced Sleep Disorder ROS: Athletes foot, Onychogryphosis Current Medications: Active Medications Generic Name Dose Route Start Last Admin Trade Name Freq PRN Reason Stop Dose Admin Acetaminophen 650 mg 10/24/17 15:09 11/12/17 21:10 Tylenol - PO 650 mg Q4H PRN Administration FEVER Al Hydroxide/Mg Hydroxide 30 ml 10/24/17 15:09 11/19/17 12:57 Mylanta Oral Suspension - PO 30 ml Q6H PRN Administration DYSPEPSIA Clindamycin Phosphate 1 applic 11/14/17 22:00 11/19/17 21:16 Cleocin 1% Gel - TP Not Given BID BETH Colloidal Oatmeal 1 applic 10/24/17 15:11 11/18/17 10:22 Aveeno Soap - TP 1 applic DAILY PRN Administration HYGEINE Eucalyptus/Menthol/Phenol/Sorbitol 1 each 10/24/17 15:09 Cepastat Lozenge - MM Q4H PRN SORE THROAT Guaifenesin 10 ml 10/24/17 15:09 Robitussin Dm - PO Q6H PRN COUGH Hydroxyzine Pamoate 50 mg 10/24/17 15:09 11/18/17 21:08 Vistaril - PO 50 mg Q4H PRN Administration AGITATION Ibuprofen 600 mg 11/12/17 15:34 11/13/17 15:58 Motrin - PO 600 mg Q8H PRN Administration Pain level 4-6 Lactic Acid 1 applic 10/24/17 15:11 11/05/17 09:50 Lac-Hydrin 12 TP 1 applic BID PRN Administration DRY SKIN Lidocaine 1 patch 11/12/17 15:45 11/19/17 09:33 Lidoderm Patch - TP Not Given DAILY BETH Loperamide HCl 4 mg 10/24/17 15:09 Imodium - PO Q6H PRN DIARRHEA Magnesium Citrate 300 ml 10/24/17 15:09 Citroma - PO Q48H PRN CONSTIPATION Magnesium Hydroxide 30 ml 10/24/17 15:09 Milk Of Magnesia - PO DAILY PRN CONSTIPATION Miscellaneous 1 each 11/12/17 22:00 11/19/17 21:16 Lidoderm Patch Removal MC Not Given DAILY@2200 BETH Pantoprazole Sodium 40 mg 10/24/17 15:35 11/19/17 09:32 Protonix - PO 40 mg DAILY BETH Administration Multivit/Folic Acid/Iron 1 tab 10/25/17 10:00 11/19/17 09:32 Vitamins (Sjr) - PO 1 tab DAILY BETH Administration Pseudoephedrine/Triprolidine 1 combo 10/24/17 15:09 Actifed - PO TID PRN NASAL CONGESTION Suvorexant 20 mg 11/18/17 22:00 11/19/17 21:14 Belsomra PO 20 mg HS PRN Administration INSOMNIA Thiamine HCl 100 mg 10/24/17 22:00 11/19/17 21:14 Vitamin B1 - PO 100 mg HS BETH Administration Tolnaftate 1 applic 10/24/17 22:00 11/19/17 21:16 Tinactin 1% Cream - TP Not Given BID BETH Trazodone HCl 50 mg 11/08/17 22:00 11/19/17 21:14 Desyrel - PO 50 mg HS BETH Administration Current Side Effect: No Lab tests ordered: Yes Lab tests reviewed: Yes Provider note:: Patient has complted this program today. He has met his treatment goals and will continue to address his issues in outpatient treatment at [facility] in the [place]. He responded well to Trazadone 50 mg po HS and Belsomra 20 mg po HS prn for insomnia. Script for 30 days supply of Trazadone will electronically be transmitted to [facility] at [address] [place] [address]. He is stable for discharge today Total face to face time:: 35 Mental Status Exam - Mental Status Exam Alert and Oriented to: Time, Place, Person Cognitive Function: Fair Patient Appearance: Well Groomed Mood: Hopeful, Euthymic Affect: Appropriate Patient Behavior: Cooperative Speech Pattern: Clear Voice Loudness: Normal Thought Process: Intact, Goal Oriented Thought Disorder: Not Present Hallucinations: Denies Suicidal Ideation: Denies Homicidal Ideation: Denies Insight/Judgement: Fair Sleep: Fair Appetite: Good Muscle strength/Tone: Normal Gait/Station: Normal Psychiatric Treatment Plan - Problem List (1) Alcohol dependence Current Visit: Yes Qualifiers: Substance use status: uncomplicated Qualified Code(s): F10.20 - Alcohol dependence, uncomplicated (2) Alcohol-induced sleep disorder Current Visit: Yes (3) Athletes foot Current Visit: Yes (4) GERD (gastroesophageal reflux disease) Current Visit: Yes (5) Onychogryphosis Current Visit: Yes Initial treatment plan: Patient is discharged today and referred to [facility] for outpatient treatment
[2017-11-20 06:48] VITALS: BP 120/78; PULSE 68; TEMP 97.4
[2017-11-20] MEDS ORDERED: PT OWN MED DRAWER 7, Y5N ONE (08:30)
[2017-11-20] MEDS: PRENATAL VITAMINS W/ FOLIC ACID TABLET (FP) PO SCH (10:15)
[2017-11-20] MEDS: PANTOPRAZOLE 40 MG TABLET (FP) PO SCH (10:15)
[2017-11-20] MEDS: LIDOCAINE 5% TOPICAL PATCH TP SCH (10:17)
[2017-11-20] MEDS: TOLNAFTATE 1% CREAM 15 GM TUBE TP SCH (10:17)
[2017-11-20] MEDS: CLINDAMYCIN PHOSPHATE 1% TOPICAL GEL 30 GM TUBE TP SCH (10:17)
== END 2017-11-20 11:20 | disposition home or self-care (01) | DRG 58 ==
LOC: YASAS 10:35 → Y3W 15:24
PROVIDERS: ADMIT Psychiatry & Neurology Psychiatry; ATTEND Psychiatry & Neurology Psychiatry
PROC: HZ42ZZZ Group Counseling for Substance Abuse Treatment, Cognitive-Behavioral (ICD-10-PCS; principal; 2017-10-24)
DX: F10.282 Alcohol dependence with alcohol-induced sleep disorder (principal); B35.3 Tinea pedis; K21.9 Gastro-esophageal reflux disease without esophagitis; L60.2 Onychogryphosis; M25.562 Pain in left knee; R07.9 Chest pain, unspecified
CPT/HCPCS: 36415; 80053; 81003; 82962; 85027; 85660; 86593; 93005; 93010

== ENCOUNTER 2017-10-31 13:53 | Emergency (ER) | payer OTHER ==
[2017-10-31 15:06] VITALS: BP 127/84; TEMP 97.8; BMI 24.8
--- NOTE | 2017-10-31 15:12 | PDOC ---
Attending Attestation - Resident Resident Name: Molina Enrique - ED Attending Attestation I have performed the following: I have examined & evaluated the patient, The case was reviewed & discussed with the resident, I agree w/resident's findings & plan, Exceptions are as noted - Medical Decision Making 10/31/17 15:55 Atypical chest discomfort reproducible given age we'll perform EKG troponin heart score 1 <Zion Vazquez - Last Filed: 10/31/17 15:50> - HPI HPI: 10/31/17 16:23 The patient is a 57 year old male, from [facility], with a significant PMH of GERD, gastric ulcer, who presents to the emergency department with sternal chest pain beginning this morning. The patient states he began to have the chest pain this morning upon waking up and describes the chest pain as non radiating, worsened with deep inspiration and palpation of the sternum. The patient reports he has not had this chest pain before in the past. The patient states his last drink was Saturday but had previously been sober for years. The patient denies shortness of breath, headache and dizziness. Denies fever, chills, nausea, vomit, diarrhea and constipation. Denies dysuria, frequency, urgency and hematuria. Allergies: mayonnaise [beets] Documentation prepared by Chucky Lopez, acting as medical staffing coordinator for Zion Vazquez MD. - Physicial Exam PE: 10/31/17 16:24 Vitals: Triage Vital signs reviewed General Appearance: no acute distress, well nourished well developed, Head: Atraumatic, normocephalic Eyes: Pupils equal reactive round, extraocular movement intact Ears: TM's normal bilaterally; Nose: Nares patent bilaterally;no nasal congestion Throat: Posterior oropharynx without erythema, mucous membranes moist, Neck: Supple;No Nuchal rigidity Chest Wall: +Reproducible chest wall pain Cardiac: Regular rate and rhythm, no murmurs, no rubs, no gallops, Lungs: Clear to auscultation bilateral, good air movement bilaterally, Abdomen: Soft, nondistended, normal bowel sounds, nontender to palpation Rectal: Exam deferred Extremities: Full range of motion to all extremities, no cyanosis, clubbing, or edema Skin: Warm and dry, no rashes or lesions, no petechiae Neuro: AOX3; Cranial Nerves 2-12 grossly intact, Strength intact to all extremities, Sensation intact to all extremities Psych: normal mood, normal affect <Chucky Lopez - Last Filed: 10/31/17 16:25> Heart Score/ECG Review - History History: Slightly suspicious - Electrocardiogram EKG: Normal - Age Age: 45-65 - Risk Factors Based on the list above the patient has:: No risk factors known - Troponin Troponin: </= normal limit - Score Heart Score - Total: 1 - ECG Impressions Comment:: 10/31/17 15:50 EKG performed at 1420 2 PM. Demonstrates sinus rhythm [address] elevations isolated T-wave inversion in V2 Interpreted by me. Normal axis. <Zion Vazquez - Last Filed: 10/31/17 15:50>
[2017-10-31 15:13] VITALS: PULSE 78
[2017-10-31] MEDS ORDERED: IBUPROFEN 400 MG TABLET (FP) PO ONE ×2 (15:21→15:53)
[2017-10-31 16:04] LABS: BASO % 0.7 % (0-2.0); EOS % 2.6 % (0-4.5); HEMATOCRIT 38.2 % (35.4-49); HEMOGLOBIN 12.9 GM/dL (11.7-16.9); LYMPH % 26.5 % (8-40); MCH 31.8 pg (25.7-33.7); MCHC 33.7 g/dl (32.0-35.9); MEAN CELL VOLUME 94.5 fl (80-96); MONO % 10.7 % (3.8-10.2); NEUT % 59.5 % (42.8-82.8); PLATELET COUNT 242 K/MM3 (134-434); RBC 4.05 M/mm3 (4.00-5.60); RDW 13.5 % (11.9-15.9); WHITE BLOOD COUNT 5.9 K/mm3 (4.0-10.0)
--- NOTE | 2017-10-31 16:04 | PDOC ---
History of Present Illness - General Chief Complaint: Weakness Stated Complaint: WEAKNESS Time Seen by Provider: 10/31/17 14:25 History Source: Patient Exam Limitations: No Limitations - History of Present Illness Initial Comments: 10/31/17 15:56 57m with pmh of GERD and gastric ulcer coming from [facility] for alcohol rehab presents with pleuritic chest pain exacerbated by deep inspiration and palpation of the sternum since waking up this morning. Pain is non-radiating. Never had this pain before. Denies chills, shortness of breath, nausea and dizziness. 10/31/17 16:04 Last drink was last Saturday, had previously been sober for years. Past History - Past Medical History Allergies/Adverse Reactions: Allergies Allergy/AdvReac Type Severity Reaction Status Date / Time mayonnaise Allergy Severe Hives Verified 10/31/17 15:07 beets Allergy Severe Hives Uncoded 10/31/17 15:07 Home Medications: Ambulatory Orders Omeprazole Magnesium [Prilosec Otc] 20 mg PO DAILY 10/24/17 Anemia: No Asthma: No Cancer: No Cardiac Disorders: No CVA: No COPD: No CHF: No Dementia: No Diabetes: No GI Disorders: Yes (acid reflux) Disorders: No HTN: No Hypercholesterolemia: No Kidney Stones: No Liver Disease: No Seizures: No Thyroid Disease: No - Surgical History Abdominal Surgery: No Appendectomy: No Cardiac Surgery: No Cholecystectomy: No Lung Surgery: No Neurologic Surgery: No Orthopedic Surgery: No - Reproductive History Testicular Surgery: No - Suicide/Smoking/Psychosocial Hx Smoking History: Unknown if ever smoked Have you smoked in the past 12 months: No Information on smoking cessation initiated: No 'Breaking Loose' booklet given: 10/24/17 Hx Alcohol Use: No Drug/Substance Use Hx: No Substance Use Type: Alcohol Hx Substance Use Treatment: Yes (Recent inpt detox @ [facility]) Review of Systems - Review of Systems Able to Perform ROS?: Yes Is the patient limited Amharic proficient: No Constitutional: No: Symptoms Reported HEENTM: No: Symptoms Reported Respiratory: No: Symptoms reported Cardiac (ROS): Yes: Chest Pain. No: Irregular Heart Rate, Lightheadedness, Palpitations, Syncope, Chest Tightness ABD/GI: No: Symptoms Reported : No: Symptoms Reported Musculoskeletal: No: Symptoms Reported Integumentary: No: Symptoms Reported Neurological: No: Symptoms reported *Physical Exam - Vital Signs Last Vital Signs Temp Pulse Resp BP Pulse Ox 97.8 F 78 16 127/84 100 10/31/17 13:53 10/31/17 15:10 10/31/17 15:10 10/31/17 15:10 10/31/17 15:10 - Physical Exam General Appearance: Yes: Nourished, Appropriately Dressed. No: Apparent Distress HEENT: positive: EOMI, PAOLA, Normal ENT Inspection Respiratory/Chest: positive: Lungs Clear, Normal Breath Sounds. negative: Chest Tender, Respiratory Distress Cardiovascular: positive: Regular Rhythm, Regular Rate, S1, S2 Gastrointestinal/Abdominal: positive: Normal Bowel Sounds, Flat, Soft. negative : Tender Musculoskeletal: positive: Normal Inspection. negative: CVA Tenderness Extremity: positive: Normal Capillary Refill, Normal Inspection Heart Score/ECG Review - History History: Slightly suspicious - Electrocardiogram EKG: Normal - Age Age: 45-65 - Risk Factors Risk Factors Heart Score: No Hx Hypercholesterolemia, No Hx Hypertension, No Hx Diabetes, No Smoking History, No Positive family hx of cardiac disease, No Hx Obesity Based on the list above the patient has:: No risk factors known - Troponin Troponin: </= normal limit - Score Heart Score - Total: 1 ED Treatment Course - LABORATORY CBC & Chemistry Diagram: 10/31/17 15:35 10/31/17 15:35 - Medications Given in the ED: ED Medications Discontinued Medications Generic Name Dose Route Start Last Admin Trade Name Freq PRN Reason Stop Dose Admin Ibuprofen 400 mg 10/31/17 15:21 10/31/17 15:54 Motrin - PO 10/31/17 15:22 400 mg ONCE ONE Administration Medical Decision Making - Medical Decision Making 10/31/17 16:08 57M presents to the ED with pleuritic chest pain. Wells score of 0. Costochondritis vs AZ vs PE Unlikely AZ and PE due to low HEART and Wells scores. EKG: Normal sinus rhythm, possible left atrial enlargement. Will send for troponins, cbc, cmp, give motrin and reassess 10/31/17 17:17 All labs negative patient cleared for discharge *DC/Admit/Observation/Transfer Diagnosis at time of Disposition: Costochondritis, acute - Discharge Dispostion Disposition: HOME Condition at time of disposition: Improved Admit: No - Referrals - Patient Instructions Printed Discharge Instructions: DI for Costochondritis Additional Instructions: Follow up with your primary care provider within the next 3 days. Come back to the Emergency Department for any new, worsening or concerning symptom. - Post Discharge Activity
[2017-10-31 16:09] LABS: ANION GAP 8 (8-16); BLOOD UREA NITROGEN 13 mg/dL (7-18); CALCIUM 8.8 mg/dL (8.5-10.1); CHLORIDE 104 mmol/L (98-107); CO2 28 mmol/L (21-32); GLUCOSE,RANDOM 103 mg/dL (74-106); SODIUM 140 mmol/L (136-145)
== END 2017-10-31 18:39 | disposition home or self-care (01) ==
LOC: JER 13:53
DX: M94.0 Chondrocostal junction syndrome [Tietze] (principal); K21.9 Gastro-esophageal reflux disease without esophagitis; Z87.19 Personal history of other diseases of the digestive system; F10.10 Alcohol abuse, uncomplicated
CPT/HCPCS: 36415; 71045-TC-FY; 80048; 84484; 85025; 99283-25